=== PATIENT | male | born 1980 | race Caucasian/White ===

== ENCOUNTER 2022-08-23 04:05 | Emergency (ER) | payer OTHER ==
[~2022-08-23] VITALS: Ht 180.3 cm; Wt 90.7 kg
[2022-08-23 04:13] VITALS: BP 144/83
--- NOTE | 2022-08-23 04:15 | NUR ---
PT TO BED 10
--- NOTE | 2022-08-23 04:32 | NUR ---
DR MULLINS EXAMINING PT
[2022-08-23] MEDS ORDERED: NACL 0.9% 1,000 ML IV ONE (04:35)
[2022-08-23] MEDS ORDERED: MORPHINE SULFATE 4 MG/ML SYR IVP ONE (04:35)
[2022-08-23] MEDS ORDERED: ONDANSETRON 4 MG/2 ML VIAL IVP ONE (04:35)
[2022-08-23] MEDS ORDERED: FAMOTIDINE 20 MG/2 ML VIAL IVP ONE (04:35)
--- NOTE | 2022-08-23 04:45 | NUR ---
received pt from intake and placed to bed 10. pt currently a/o x 4, gcs 15. pt is a 41 year old male with no hx coming from home for cc of epigastric pain radiating to lower back since 0030. pt reports taking 1g tylenol and 800 motrin with no relief. denies n/v/d at this time.
[2022-08-23 04:55] LABS: BASOPHILS # (AUTO) 0.1 K/uL (0.00-0.22); BASOPHILS % (AUTO) 0.5 % (0.0-2.0); EOSINOPHILS # (AUTO) 0.1 K/uL (0-0.4); EOSINOPHILS % (AUTO) 1.1 % (0.0-4.0); HEMATOCRIT 46.5 % (36-52); HEMOGLOBIN 15.5 g/dL (12.0-18.0); LYMPHOCYTES # (AUTO) 2.3 K/uL (2.0-11.5); LYMPHOCYTES % (AUTO) 20.1 % (20.5-51.1); MEAN CORPUSCULAR HEMOGLOBIN 29 pg (27-31); MEAN CORPUSCULAR HGB CONC 33 g/dL (33-37); MEAN CORPUSCULAR VOLUME 87.6 fL (80-94); MONOCYTES # (AUTO) 0.8 K/uL (0.8-1.0); MONOCYTES % (AUTO) 6.7 % (1.7-9.3); NEUTROPHILS # (AUTO) 8.2 K/uL (1.8-7.7); NEUTROPHILS % (AUTO) 71.6 % (42.2-75.2); PLATELET COUNT (AUTO) 309 K/uL (140-450); RED BLOOD CELL COUNT(AUTO) 5.31 MIL/uL (4.20-6.10); RED CELL DISTRIBUTION WIDTH 13.1 % (11.6-13.7); WHITE BLOOD COUNT (AUTO) 11.4 K/uL (4.8-10.8)
[2022-08-23] MEDS ORDERED: HYDROmorphone PFS 2 MG/ML SYR IVP ONE (05:05)
[2022-08-23] MEDS ORDERED: HYDROmorphone 1 MG/ML AMP ONE (05:06)
[2022-08-23 05:09] LABS: ALBUMIN 4.2 g/dL (3.4-5.0); AMYLASE 42 U/L (25-115); ANION GAP 14.7 (8-16); CARBON DIOXIDE 27.1 mmol/L (21-32); CHLORIDE 103 mmol/L (98-107); GFR ARICAN-AMERICAN 105 mL/min (>90); GLUCOSE 147 mg/dL (74-106); LIPASE 185 U/L (73-393); POTASSIUM 3.8 mmol/L (3.5-5.1); SODIUM SERUM 141 mmol/L (136-145); TOTAL BILIRUBIN 0.4 mg/dL (0.0-1.0); UREA NITROGEN, BLOOD 13 mg/dL (7-18)
--- NOTE | 2022-08-23 07:20 | NUR ---
Assumed care from JANAE Sadler.
--- NOTE | 2022-08-23 07:35 | NUR ---
Pt in resting in bed, urine sample provided. AOX4, able to make needs known. Resp even and unlabored. 0/10 pain reported at this time. Denies any abd pain. Denies N/V.
[2022-08-23] MEDS ORDERED: ACET-9527 PO (08:04)
[2022-08-23] MEDS ORDERED: ONDA-188 PO (08:04)
--- NOTE | 2022-08-23 08:40 | NUR ---
US at bedside performing procedure.
[2022-08-23 09:25] VITALS: BP 135/84
--- NOTE | 2022-08-23 09:25 | NUR ---
Patient discharged with v/s stable. Written and verbal after care instructions given and explained with teachback. Patient alert, oriented and verbalized understanding of instructions. Ambulatory with steady gait. All questions addressed prior to discharge. ID band removed. Patient advised to follow up with PMD. Rx of Wassaic/zofran given. Patient educated on indication of medication including possible reaction and side effects. Opportunity to ask questions provided and answered.
[2022-08-23 09:26] LABS: APPEARANCE,URINE CLEAR (CLEAR); BILIRUBIN,URINE NEGATIVE (NEGATIVE); BLOOD, URINE NEGATIVE (NEGATIVE); COLOR,URINE YELLOW (YELLOW); LEUKOCYTE ESTERASE ,URINE NEGATIVE (NEGATIVE); NITRITE, URINE NEGATIVE (NEGATIVE); UGLUCOSE NEGATIVE (NEGATIVE)
== END 2022-08-23 09:25 | disposition home or self-care (01) ==
LOC: MED 04:05
DX: R10.13 Epigastric pain (principal); Z87.442 Personal history of urinary calculi
CPT/HCPCS: 36415; 74177; 76705; 80053; 81003; 82150; 83690; 85025; 96361; 96374; 96375; 99285; J1170; J2270; J2405; J3490; Q0092; Q9967; J7030